=== PATIENT | male | born 1955 | race Caucasian/White ===

== ENCOUNTER → 2021-05-28 | Outpatient (CLI) | payer OTHER ==
[~2021-05-28] MED LIST: ASPI81CH39 PO; ATEN50TA PO; ETAN50IN10; FELO5TAB3 PO; HYDR200T36 PO; LISI20TA28 PO; METH25IN14; PRED5PAK8 PO; PRILOSEC; SIMV-13 PO
[2021-05-28 09:50] LABS: Basophils # (auto) 0 10 ^3/uL (0-0.2); Basophils % (auto) 0.3 % (0.0-2.0); Eosinophils # (auto) 0.6 10 ^3/uL (0-0.8); Eosinophils % (auto) 7.2 % (0.0-7.0); Hemoglobin 16.6 g/dL (13.5-17.5); Lymphocytes # (auto) 1.7 10 ^3/uL (0.4-5.4); Lymphocytes % (auto) 19.4 % (10.0-50.0); Mean Corpuscular Hemoglobin 30.2 pg (28.0-32.0); Mean Corpuscular Hgb Conc. 34.6 g/dL (32.0-36.0); Mean Corpuscular Volume 87.3 fL (80.0-100.0); Monocytes # (auto) 0.1 10 ^3/uL (0-1.3); Monocytes % (auto) 1.1 % (0.0-12.0); Neutrophils # (auto) 6.3 10 ^3/uL (1.6-8.6); Nucleated Red Blood Cells % 0.2 %; White Blood Cell 8.8 10^3/uL (4.4-10.8)
[2021-05-28 10:54] LABS: Potassium 3.7 mmol/L (3.5-5.1)
[2021-05-28 11:09] LABS: Albumin 3.8 g/dL (3.4-5.0); BUN/Creatinine Ratio 21.4; Bilirubin, Total 0.4 mg/dL (0.2-1.0); Calcium 10.4 mg/dL (8.5-10.1); Total Protein 7.5 g/dL (6.4-8.2); Uric Acid 5.4 mg/dL (3.5-7.2)
== END | disposition home or self-care (01) ==
LOC: LAB 08:26
PROVIDERS: ATTEND Internal Medicine
DX: I10 Essential (primary) hypertension (principal); M06.9 Rheumatoid arthritis, unspecified
CPT/HCPCS: 36415; 80053; 84550; 85025; 85652; 86038; 86200; 86431